=== PATIENT | male | born 1945 | race Caucasian/White ===

== ENCOUNTER → 2017-01-07 | Day surgery (SDC) | payer OTHER, MEDICARE ==
[2017-01-07] VITALS (9 sets, daily range): BP systolic 120–136; BP diastolic 70–88
[~2017-01-07] VITALS: Ht 188 cm; Wt 71.2 kg
[~2017-01-07] MED LIST: Akten 3.5% 1ml Btl ONE; BSS 15ml BTL ONE; BSS 500ml btl ONE; CALCIUM PO; Carbachol 0.01% Op Soln 1.5ml vial ONE; Dexamethasone 4mg/ml vial ONE; Diclofenac Sod 0.1% Op Soln ONE; EPINEPHrine 1mg/1ml Amp ONE; FOSAMAX70 MG ORAL; Gatifloxacin Opth Solution 0.5% ONE; LR 1000ml ONE; Lidocaine 1% MPF 10mg/ml 5ml ONE; Midazolam 2mg/2ml Inj ONE; Phenylephrine 2.5% Op Soln ONE; Povidone-Iodine 5% opth solution ONE; SIMETHICONE80 MG ORAL; Sodium Hyaluronate 14 mg/ml 0.85ml ONE; Sterile Water Irrig 1000ml IRRIG ONE; Tobradex Opth Susp 2.5ml ONE; Tropicamide 1% Opth Soln ONE; VALTREX1000 MG PO; ZOLADEX3.6 MG SUBQ
[2017-01-07] MEDS: Akten 3.5% 1ml Btl RIGHT EYE SCH ×3 (06:28→06:51)
[2017-01-07] MEDS: Tropicamide 1% Opth Soln RIGHT EYE SCH ×3 (06:28→06:51)
[2017-01-07] MEDS: Diclofenac Sod 0.1% Op Soln RIGHT EYE SCH ×3 (06:28→06:51)
[2017-01-07] MEDS: Phenylephrine 2.5% Op Soln RIGHT EYE SCH ×3 (06:28→06:52)
[2017-01-07] MEDS: Gatifloxacin Opth Solution 0.5% RIGHT EYE SCH ×3 (06:29→06:52)
[2017-01-07] MEDS: Tobradex Opth Susp 2.5ml RIGHT EYE SCH ×3 (06:29→06:52)
--- NOTE | 2017-01-07 07:40 | Pre-Procedure Note/Attestation ---
Pre-Procedure Note/Attestation Complete Prior to Procedure Planned Procedure: right Procedure Narrative: cataract extraction with implant right eye Indications for Procedure Pre-Operative Diagnosis: cataract right eye Attestation I attest that I discussed the nature of the procedure; its benefits; risks and complications; and alternatives (and the risks and benefits of such alternatives ), prior to the procedure, with the patient (or the patient's legal players club representative). I attest that, if there was a reasonable possibility of needing a blood transfusion, the patient (or the patient's legal players club representative) was given the [facility] standardized written summary, pursuant to the Robel Jordan Blood Safety Act ([place] Health and Safety Code # 1645, as amended). I attest that I re-evaluated the patient just prior to the surgery and that there has been no change in the patient's H&P, except as documented below: FLORENCE BARFIELD Jan 07, 2017 07:40
--- NOTE | 2017-01-07 07:53 | Anethesia Preoperative Eval ---
Anesthesia Pre-op PMH/ROS General Date of Evaluation: Jan 07, 2017 Time of Evaluation: 07:49 Anesthesiologist: tahmina ASA Score: ASA 2 Mallampati Score Class I : Soft palate, uvula, fauces, pillars visible Class II: Soft palate, uvula, fauces visible Class III: Soft palate, base of uvula visible Class IV: Only hard plate visible Mallampati Classification: Class II Surgeon: giulia Diagnosis: cataract Surgical Procedure: catract extraction with IOL ri Anesthesia History: none Family History: no anesthesia problems Allergies: Coded Allergies: No Known Allergies (Unverified , 11/11/16) Past Medical History Cardiovascular: Denies: CAD, HTN, OR, arrhythmia, other, valve dz Pulmonary: Denies: COPD, KURT, asthma, other Gastrointestinal/Genitourinary: Denies: CRI, ESRD, GERD, other Neurologic/Psychiatric: Denies: CVA, TIA, dementia, depression/anxiety, other Endocrine: Denies: DM, hypothyroidism, other, steroids HEENT: Reports: cataract (L) Hematology/Immune: Denies: DVT, anemia, bleeding disorder, other Musculoskeletal/Integumentary: Reports: DJD PMH Narrative: Prostate CA with metastasis PSxH Narrative: prostatectomy Anesthesia Pre-op Phys. Exam Physician Exam Last Vital Signs Date Time Temp Pulse Resp B/P Pulse Ox O2 Delivery O2 Flow Rate FiO2 01/07/17 06:34 97.3 53 20 127/78 99 Room Air Constitutional: NAD Neurologic: CN 2-12 intact Cardiovascular: RRR Respiratory: CTA Gastrointestinal: S/NT/ND Airway Exam Mallampati Classification 3 Mallampati Score: Class II MO: full Neck: thin TMD: 3fb ROM: full Dentures: no lower, no upper Anesthesia Pre-op A/P Studies Pre-op Studies: EKG - sr Risk Assessment & Plan Plan: mac Status Change Before Surgery: No Pre-Antibiotics Drug: none CRISTY PLUMMER CRNA Jan 07, 2017 07:53
--- NOTE | 2017-01-07 08:06 | Brief Operative Note ---
Immediate Post Operative Note Operative Note Pre-op Diagnosis: cataract right eye Procedure: phacoemulsification of cataract with implant right eye Post-op Diagnosis: same as pre-op Surgeon: florence platt Direct Support Professional Caregiver: none Anesthesiologist: elliot martel Anesthesia: MAC Specimen: none Complications: none Condition: stable Estimated Blood Loss: none Drains: none Implant(s) used?: Yes FLORENCE PLATT Jan 07, 2017 08:06
--- NOTE | 2017-01-07 08:16 | Immediate Post-Op Evaluation ---
Immediate Post-Op Evalulation Immediate Post-Op Evalulation Procedure: Cataract extraction with IOL Date of Evaluation: Jan 07, 2017 Time of Evaluation: 08:15 IV Fluids: 200 Blood Pressure Systolic: 133 Blood Pressure Diastolic: 83 Pulse Rate: 58 Respiratory Rate: 14 O2 Sat by Pulse Oximetry: 100 Temperature (Fahrenheit): 97.7 Nausea: No Vomiting: No Complications none Patient Status: awake, reacts, patent Hydration Status: adequate Drug: none ERIKARICALEIONCRISTY CRNA Jan 07, 2017 08:16
--- NOTE | 2017-01-07 09:32 | 48 Hour Post Anesthesia Eval ---
Post Anesthesia Evaluation Procedure: Cataract extraction with IOL Date of Evaluation: Jan 07, 2017 Time of Evaluation: 09:32 Blood Pressure Systolic: 114 0: 62 Pulse Rate: 74 O2 Sat by Pulse Oximetry: 99 Airway: patent Nausea: No Vomiting: No Hydration Status: adequate Cardiopulmonary Status: normal Mental Status/LOC: patient returned to baseline Post-Anesthesia Complications: none CRISTY PLUMMER CRNA Jan 07, 2017 09:32
--- NOTE | 2017-01-07 12:08 | Operative Note - Dictated ---
DATE OF OPERATION: 01/07/2017 PREOPERATIVE DIAGNOSIS: Cataract, right eye. POSTOPERATIVE DIAGNOSIS: Cataract, right eye. PROCEDURE: Phacoemulsification cataract right eye with placement of posterior chamber intraocular lens. SURGEON: Nam Smith M.D. PHARMACOEPIDEMIOLOGIST: None. ANESTHESIA: MAC/topical. ANESTHESIOLOGIST: Zhanna Still CRNA . INDICATION FOR PROCEDURE: Poor vision, right eye. DESCRIPTION OF FINDINGS: Nuclear sclerotic cataract, right eye. DESCRIPTION OF PROCEDURE: The patient received a topical anesthetic block consisting of 3.5% Akten eye drops. The eye was then prepped and draped in usual manner. A lid speculum placed and a Zeiss microscope was positioned. The temporal corneal groove was made with a narinder blade. A SuperSharp blade and a stab incision at the 12 o'clock position. A 0.1 mL of 1% nonpreserved intracameral lidocaine was injected. Healon was instilled into the anterior chamber and a 2.5/2.8 mm trapezoidal narinder blade was used to complete the temporal corneal wound. A cystotome was used to create the anterior capsular flap. Utrata forceps were used to complete the capsulorrhexis. BSS on a cannula was used to hydrodissect the nucleus. The lens nucleus was phacoemulsified in a phaco-fracture technique. Remaining cortical material was removed with the I/A and the posterior capsule polished with the I/A on Cap vac. Healon was instilled in a capsular bag and the anterior chamber, and an Michaud one-piece posterior chamber intraocular lens model ZCB00, power 21.0 diopter, serial #[id number] was placed in the injector. The lens was put in the capsular bag. The I/A tip was used to remove the Healon and position the lens. The wound edge was hydrated with BSS and a blunt-tipped cannula. The wound was checked and found to be watertight. The lid speculum was removed and a drop of TobraDex and Zymaxid was placed. A clear plastic shield was taped over the eye. The patient tolerated the procedure well and left the operating room in good condition. Nam Smith M.D. ([facility] [place]) DR: ROME JOB#: [id number] CC: MTDD
== END | disposition home or self-care (01) ==
LOC: SUR 05:41
DX: H25.11 Age-related nuclear cataract, right eye (principal); C61 Malignant neoplasm of prostate; C79.9 Secondary malignant neoplasm of unspecified site; K58.9 Irritable bowel syndrome, unspecified; M81.0 Age-related osteoporosis without current pathological fracture; M19.90 Unspecified osteoarthritis, unspecified site; Z85.828 Personal history of other malignant neoplasm of skin; Z86.73 Personal history of transient ischemic attack (TIA), and cerebral infarction without residual deficits; Z87.891 Personal history of nicotine dependence; Z90.49 Acquired absence of other specified parts of digestive tract
CPT/HCPCS: 66984; J0171; J1100; J2250; J7120; V2632; 94003; 94150